=== PATIENT | female | born 1930 | race Caucasian/White ===

== ENCOUNTER 2017-09-25 23:44 | Emergency (ER) | payer MEDICARE, OTHER ==
--- NOTE | 2017-09-26 00:18 | EDM.PDOC ---
ED HPI GENERAL MEDICAL PROBLEM - General Chief Complaint: Respiratory Problem Stated Complaint: COUGH AND CONGESTION Time Seen by Provider: 09/26/17 00:05 Source of Information: Reports: Patient, Family (Daughter), RN Notes Reviewed - History of Present Illness INITIAL COMMENTS - FREE TEXT/NARRATIVE: 87-year-old female comes in with severe cough. She states this started yesterday. Starting to get some nasal congestion and rhinitis. She has had mild scratchy sore throat. Off is nonproductive. She's had some chills but no definite fever. She did not get a flu shot this year. She has been around younger family members that have been ill this past week. 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 Denies: Shortness of Breath, Wheezing Cardiovascular: Denies: Chest Pain (Severe, frequent) GI/Abdominal: Denies: Abdominal Pain, Nausea, Vomiting Musculoskeletal: Reports: No Symptoms (No acute symptoms) Skin: Reports: No Symptoms Neurological: Denies: Headache ED EXAM, GENERAL - Physical Exam Exam: See Below General Appearance: Alert, No Apparent Distress Eye Exam: Bilateral Eye: PERRL Nose: Normal Inspection Throat/Mouth: Normal Inspection, Normal Oropharynx Head: Atraumatic Neck: Supple, Full Range of Motion Respiratory/Chest: No Respiratory Distress, Lungs Clear, Normal Breath Sounds. No: Rhonchi, Wheezing Cardiovascular: Regular Rate, Rhythm Extremities: Normal Inspection, Normal Range of Motion Neurological: Alert, Oriented, No Motor/Sensory Deficits Skin Exam: Warm, Dry, Normal Color Course - Vital Signs Last Recorded V/S: Last Vital Signs Temp 97.2 F 09/25/17 23:53 Pulse 93 09/25/17 23:53 Resp 18 09/25/17 23:53 BP 150/78 H 09/25/17 23:53 Pulse Ox 97 09/25/17 23:53 - Orders/Labs/Meds Orders: Active Orders 24 hr Category Date Time Status Chest 1V Frontal [CR] Stat Exams 09/26/17 00:15 Ordered Departure - Departure Time of Disposition: 01:03 Disposition: Home, Self-Care 01 Condition: Fair Clinical Impression: Upper respiratory infection Qualifiers: URI type: unspecified viral URI Qualified Code(s): J06.9 - Acute upper respiratory infection, unspecified; B97.89 - Other viral agents as the cause of diseases classified elsewhere; B97.89 - Other viral agents as the cause of diseases classified elsewhere - Discharge Information Referrals: Tyrone Alexander MD [Primary Care Provider] - Forms: ED Department Discharge Additional Instructions: Vaporizer or steam as needed, Tylenol every 6-8 hours as needed for discomfort , Phenergan with codeine cough medication 1-2 teaspoons every 4-6 hours as needed for severe cough. The cough medication will make you somewhat drowsy so that will also help you sleep, drink plenty of water to maintain hydration. I' ll up clinic if not getting better within 3-5 days as expected, return to ED as needed - My Orders Last 24 Hours: My Active Orders 09/26/17 00:15 Chest 1V Frontal [CR] Stat - Assessment/Plan Last 24 Hours: My Active Orders 09/26/17 00:15 Chest 1V Frontal [CR] Stat
--- NOTE | 2017-09-26 11:24 | CR ---
Chest: Portable view of the chest was obtained. Comparison: Prior chest x-ray of 06/12/13. Heart size is normal. Tortuous thoracic aorta is seen with atherosclerotic calcification. Lungs are clear. Bony structures are grossly intact. Impression: 1. Nothing acute is identified on portable chest x-ray. Diagnostic code #1
== END 2017-09-26 01:15 | disposition home or self-care (01) ==
LOC: JD.ED 23:44
DX: J06.9 Acute upper respiratory infection, unspecified (principal); I10 Essential (primary) hypertension; Z79.899 Other long term (current) drug therapy
CPT/HCPCS: 71010; 71010-26; 87804; 99283; 99284

== ENCOUNTER 2019-05-25 10:50 | Emergency (ER) | payer MEDICARE, OTHER | END 2019-05-25 11:30 | disposition left against medical advice (07) | LOC: JD.ED 10:50 | DX: Z53.21 Procedure and treatment not carried out due to patient leaving prior to being seen by health care provider (principal) ==

== ENCOUNTER 2020-09-28 15:58 | Emergency (ER) | payer MEDICARE, OTHER ==
--- NOTE | 2020-09-28 16:16 | EDM.PDOC ---
ED HPI GENERAL MEDICAL PROBLEM - General Chief Complaint: Neurological Problem Stated Complaint: [facility] Time Seen by Provider: 09/28/20 16:09 Source of Information: Reports: Patient History Limitations: Reports: No Limitations - History of Present Illness INITIAL COMMENTS - FREE TEXT/NARRATIVE: 89-year-old female presents to the ED per [facility] due to vertigo symptoms that started this morning. She feels like she is spinning not the world around her. This is happened to her before. She had problems with cerumen impaction in both ears and was seen through the clinic last week. They advised her to place eardrops that they ordered to help dissolve the earwax in her right ear particularly. They were unable to irrigate it completely in the clinic. At the time of arrival the patient is feeling better than she was at home. She claims her vertigo symptoms have now gone away almost completely. At no time did she have any vomiting. She felt slightly nauseated for short time this morning. She did take a meclizine tablet at about 1100 hrs. this morning. She takes this on a intermittent basis for his symptoms. Nurses appreciated that she has numerous facial tics involving both upper eyebrows and facial cheek twitching and the patient cannot tell me if this is old or new. Of note meclizine interaction with trazodone might cause a dystonic reaction. Neuro exam is otherwise normal. Denies any falls or recent trauma. Patient denies any recent changes to her medications. Onset: Today, Sudden Onset Date: 09/28/20 Onset Time: 09:00 Duration: Hour(s):, Improving (Symptoms improved coming to the hospital in the ambulance.) Location: Reports: Other (Station of vertigo with herself spinning around like a top not the world around her.) Quality: Reports: Other (Severe vertigo at home.) Severity: Severe Improves with: Reports: Other (Appears to have improved with time and transition from her home to the emergency department per ambulance. This is likely coincidental.) Worsens with: Reports: Movement Context: Reports: Other (Onset of vertigo symptoms this morning about night between 9 and 930 hours.). Denies: Activity (She was feeling the vertigo much worse with movement of her head neck at home.), Exercise, Lifting, Sick Contact, Trauma Associated Symptoms: Reports: Loss of Appetite, Nausea/Vomiting. 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 this morning) - Related Data Allergies Allergy/AdvReac Type Severity Reaction Status Date / Time No Known Allergies Allergy Verified 09/25/17 23:51 Home Meds: Home Meds Lisinopril/Hydrochlorothiazide [Lisinopril-Hctz 20-25 mg Tab] 0.5 tab PO DAILY 09/25/17 [History] Metoprolol Tartrate 25 mg PO BID 09/25/17 [History] Past Medical History HEENT History: Reports: Impaired Vision, Other (See Below) (Has had bilateral cataract extractions and intraocular lens placements.) Other HEENT History: Wears glasses Cardiovascular History: Reports: Hypertension Genitourinary History: Reports: Renal Calculus, Urinary Incontinence (Urge and stress components.) 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 Denies: Fever, Chills, Malaise, Weakness HEENT: Reports: Glasses Respiratory: Denies: Shortness of Breath, Wheezing, Pleuritic Chest Pain, Cough, Sputum Cardiovascular: Denies: Chest Pain Endocrine: Reports: Fatigue GI/Abdominal: Reports: Nausea (This morning but not usually.), Other (No history of abdominal surgery). Denies: Abdominal Pain, Constipation : Reports: Frequency, Incontinence Musculoskeletal: Reports: Joint Pain (Neck at times.) Skin: Reports: No Symptoms Neurological: Reports: Difficulty Walking (Was quite offkilter or ataxic when trying to walk at home prior to coming to the ED.). Denies: Confusion, Dizziness, Headache, Numbness, Syncope, Tingling Psychiatric: Reports: No Symptoms Hematologic/Lymphatic: Reports: No Symptoms Immunologic: Reports: No Symptoms ED EXAM, DIZZINESS - Physical Exam Exam: See Below Exam Limited By: No Limitations General Appearance: Alert, WD/WN, No Apparent Distress, Other (Temperature is 36.4 with a heart rate of 74 and sinus respiratory to 15 with O2 sats of 98% room air BP 125/66. Of note the patient has facial twitching of both upper eyebrows and facial cheeks periorally and she is not aware of this. It is unclear if this is a chronic condition for her or aggravated by being on trazodone and taking meclizine 25 mg earlier today causing mild dystonic reaction.) Eye Exam: Bilateral Eye: Normal Inspection, Nystagmus (No nystagmus at the time of my examination), PERRL Ears: Other (She has difficult tympanic membranes to visualize due to curvature of the ear canals. There is a minimal amount of cerumen in the right ear and none in the left ear.) Throat/Mouth: Normal Inspection, Normal Lips, Normal Teeth, Normal Oropharynx, Other (Patient has recurrent spontaneous movements of both eyebrows with spontaneous partial closure of her eyes and facial tics involving the perioral muscles bilaterally. By the history of this this is likely chronic.) Head Exam: Atraumatic, Normocephalic Vertigo: worsens with head to L, short duration Neck: Limited Range of Motion (Patient is loss about 5 degrees lateral rotation and flexion.), Tender Lateral. No: Lymphadenopathy (L), Lymphadenopathy (R) Respiratory/Chest: No Respiratory Distress, Lungs Clear, Normal Breath Sounds, No Accessory Muscle Use Cardiovascular: Normal Peripheral Pulses, Regular Rate, Rhythm, No Edema, No Gallop, No Murmur, No Rub GI/Abdominal: Normal Bowel Sounds, Soft, Non-Tender, No Organomegaly, No Mass, Pelvis Stable, Other (Moderately obese. No surgical scars.) Neurological: Alert, Normal Mood/Affect, Normal Dorsiflexion, CN II-XII Intact, Oriented x 3, Ataxia (She had very minimal ataxia when walked in the hallway. She reported that her vertigo that she was experiencing home is like 90% better since coming to the hospital per ambulance.), Other (No pronator drift.). No: Abnormal Finger to Nose Extremities: Normal Inspection, Normal Range of Motion, Non-Tender, No Pedal Edema Psychiatric: Normal Affect, Normal Mood Skin Exam: Warm, Dry, Intact, Normal Color, No Rash Course - Vital Signs Last Recorded V/S: Last Vital Signs Temp 36.4 C 09/28/20 16:05 Pulse 74 09/28/20 16:05 Resp 15 09/28/20 16:05 BP 125/66 09/28/20 16:05 Pulse Ox 98 09/28/20 16:05 - Radiology Interpretation Free Text/Narrative:: 89-year-old female presents to the ED for evaluation of vertigo with a sense of self spinning like a top. Symptoms started abruptly this morning approximately 0930 hrs. She has had this in the past. She did take meclizine 25 mg tablet at about 1100 hrs. She was still experiencing significant vertigo symptoms at home mid afternoon and therefore elected to called EMS to bring her to the hospital. When she got here she reported that her vertigo symptoms had suddenly improved dramatically. She had no nystagmus on examination. She has a nervous facial tic involving both eyebrows with partial closure of her eyes intermittently and perioral muscle twitching which she does not seem to be aware of and thus I suspect his chronic condition. It is certainly not bothering her. It is more noticeable at rest and better when she is talking or up and walking. I question whether or not she was experiencing mild tardive dyskinesia by taking meclizine 25 mg and currently on trazodone at bedtime. On assessment of her gait walking in the hallway she had very subtle problems with her gait and turned normally in the hallway and came back to her room. Ports that her vertigo symptoms for the most part are gone. Therefore no further interventions or testing was indicated at this time and she will continue to use meclizine 25 mg as needed. She has a prescription for this medication and next dose would be due around 1900 hrs. this evening if she is still having any vertigo symptoms at home. She will of course return to the ED if symptoms become severe again. Departure - Departure Time of Disposition: 16:29 Disposition: Home, Self-Care 01 Condition: Fair Clinical Impression: Benign paroxysmal positional vertigo Qualifiers: Laterality: unspecified laterality Qualified Code(s): H81.10 - Benign paroxysmal vertigo, unspecified ear - Discharge Information *PRESCRIPTION DRUG MONITORING PROGRAM REVIEWED*: Not Applicable *COPY OF PRESCRIPTION DRUG MONITORING REPORT IN PATIENT BRYON: Not Applicable Instructions: Vertigo, [id number] Referrals: Tyrone Alexander MD [Primary Care Provider] - Forms: ED Department Discharge Additional Instructions: Dilation in the emergency room today in regards to development of sudden onset of vertigo with sense of self spinning and loss of balance at home this morning. You have had vertigo symptoms in the past. Recent attempts to clear out your ears from cerumen or earwax impaction last week was unsuccessful. You have been placing eardrops in the right ear primarily to help loosen the wax. At the time you were seen in the emergency room your vertigo symptoms had improved dramatically compared to being at home. Neurological evaluation was normal. There is very minimal wax within the right ear canal. None was identified in the left ear canal. Your balance and gait were only very minimally affected when we had you up walking in the hallway. It appears that the vertigo symptoms have resolved at this point time but they may come back. If you still feel off balance or any symptoms of vertigo by 7 PM tonight you may take another tablet of meclizine 12.5 mg. At this time we do not feel any further investigations are required. Return to the emergency room or follow-up with your personal care physician if any further problems occur. Sepsis Event Note (ED) - Evaluation Sepsis Screening Result: No Definite Risk - Focused Exam Vital Signs: Vital Signs Temp Pulse Resp BP Pulse Ox 09/28/20 16:05 36.4 C 74 15 125/66 98
== END 2020-09-28 16:45 | disposition home or self-care (01) ==
LOC: JD.ED 15:58
DX: H81.10 Benign paroxysmal vertigo, unspecified ear (principal); H61.21 Impacted cerumen, right ear; M54.2 Cervicalgia; I10 Essential (primary) hypertension; E66.9 Obesity, unspecified; Z68.33 Body mass index [BMI] 33.0-33.9, adult; Z79.899 Other long term (current) drug therapy
CPT/HCPCS: 99283